=== PATIENT | male | born 1955 | race Caucasian/White ===

== ENCOUNTER 2017-01-31 14:41 | Emergency (ER) | payer MEDICARE, OTHER ==
[~2017-01-31] VITALS: Ht 180.3 cm; Wt 86.4 kg
[2017-01-31] MEDS ORDERED: LISI5TAB PO (14:48)
[2017-01-31] MEDS ORDERED: SIMV5TAB6 PO (14:48)
[2017-01-31] MEDS ORDERED: GABA300C PO (14:48)
[2017-01-31] MEDS ORDERED: CITA10TA13 PO (14:48)
[2017-01-31 17:58] VITALS: BP 121/80
== END 2017-01-31 17:59 | disposition home or self-care (01) ==
LOC: EMS 14:45
DX: S62.613A Displaced fracture of proximal phalanx of left middle finger, initial encounter for closed fracture (principal); I10 Essential (primary) hypertension; W23.0XXA Caught, crushed, jammed, or pinched between moving objects, initial encounter; Y93.61 Activity, american tackle football; Y92.89 Other specified places as the place of occurrence of the external cause; Y99.8 Other external cause status
CPT/HCPCS: 99284